=== PATIENT | female | born 1930 | race Caucasian/White ===

== ENCOUNTER 2017-02-08 08:36 | Inpatient (IN) | payer MEDICARE, BC ==
[2017-02-08] MEDS ORDERED: Aspirin Low Dose CHEW TAB* 81 MG PO ONE (09:02)
[2017-02-08] MEDS ORDERED: NS 0.9% 1000 ML* 1,000 ML IV ONE (09:02)
--- NOTE | 2017-02-08 09:44 | RAD ---
INDICATION: Pneumonia, CHF. COMPARISON: Comparison is made with prior chest x-ray studies from May 07, 2012 and June 21, 2012. TECHNIQUE: A portable view of the chest was obtained. FINDINGS: The heart is mildly enlarged and unchanged. There is elevation of the right hemidiaphragm which is unchanged. There is a small right upper lobe infiltrate. In addition there is increased density in the right paratracheal region possibly representing mediastinal lymphadenopathy. IMPRESSION: 1. POSSIBLE MEDIASTINAL LYMPHADENOPATHY, RECOMMEND A CT OF THE CHEST FOR FURTHER EVALUATION WITH CONTRAST. 2. SMALL RIGHT UPPER LOBE INFILTRATE.
[2017-02-08 10:11] LABS: Hematocrit 41 % (35-47); Mean Corpuscular HGB Conc 34 g/dl (31-36); Mean Corpuscular Hemoglobin 34 pg (27-31); Mean Corpuscular Volume 100 fL (80-97); Mean Platelet Volume 11 um3 (7.4-10.4); Red Blood Count 4.12 10^6/ul (4.0-5.4); Red Cell Distribution Width 14 % (10.5-15); White Blood Count 6.5 10^3/ul (3.5-10.8)
--- NOTE | 2017-02-08 10:56 | RAD ---
INDICATION: Thoracic aneurysm history, chest pain shortness of breath. COMPARISON: Comparison is made with prior CT studies of the chest from January 31, 2011, May 10, 2012 and June 17, 2012. TECHNIQUE: A CT scan of the chest was performed without intravenous contrast. Contiguous axial sections were obtained from the lung apices through the lung bases. Images were reconstructed in the coronal and sagittal planes. FINDINGS: There is an interstitial infiltrate present in the right upper lobe which appears unchanged from the prior exam most consistent with interstitial scarring. The lungs are otherwise clear. No pleural effusion is seen. There is a soft tissue density mass anterior to the ascending thoracic aorta measuring 5.4 x 5.1 x 3.2 cm in size. This previously measured 4.5 x 3.6 x 3.2 cm in size. There is some extension of contrast into the aneurysm on the study from 2010 which was performed with contrast. 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 The thoracic aorta is otherwise normal in caliber. There is moderate calcific plaque present. The heart is mildly enlarged. No pericardial effusion is present. No significant enlarged mediastinal or hilar lymph nodes are seen. There is a calcified subcarinal lymph node consistent with old granulomatous disease. No significant focal osseous abnormality is seen. The results of this exam were discussed with the referring clinician. 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
[2017-02-08 12:45] LABS: BUN/Creatinine Ratio 12.9 (8-20); Calcium 9.6 mg/dL (8.6-10.3); EGFR Non-African American 44.3 (>60); Globulin 3.3 g/dL (2-4); Magnesium 1.9 mg/dL (1.9-2.7); Potassium 4.5 mmol/L (3.5-5.0); Total Bilirubin 0.3 mg/dL (0.2-1.0); Total Protein 7.3 g/dL (6.4-8.9)
[2017-02-08] MEDS ORDERED: PROCHLORPERAZINE INJ 5 MG/ML 2 ML VIAL IV PRN (12:49)
[2017-02-08] MEDS ORDERED: Acetaminophen TAB* 325 MG PO PRN (12:49)
[2017-02-08] MEDS ORDERED: Morphine INJ* 2 MG/ML 1 ML SYRINGE IV PRN (12:49)
[2017-02-08] MEDS ORDERED: Labetalol IV* 5 MG/ML 20 ML VIAL IV PUSH ONE (12:50)
[2017-02-08] MEDS ORDERED: Dextrose 50% Syringe 50 ML* 25 GM/50 ML SYRINGE IV PUSH PRN (13:21)
[2017-02-08] MEDS ORDERED: Heparin VIAL(*) 5000 UNITS/ML VIAL (FIVE THOUSAND) SUBCUT SCH (14:00)
--- NOTE | 2017-02-08 15:11 | ED ---
Ana Riddle Edward, scribed for Theo Vasquez MD on 02/08/17 at 0845 . Shortness of Breath - HPI Summary HPI Summary: 86 y/o female BIBA c/o sudden onset SOB at 04:00 this morning. SOB has resolved in the ED. The pt was sleeping when it started. Pt also had L sided CP earlier that resolved spontaneously. Associated sx: chronic pedal edema, wheezing. Denies cough. No previous [place]. 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 SHx carotid artery surgery. Former smoker. Pt is allergic penicillin and bees. - History of Current Complaint Time Seen by Provider: 02/08/17 08:39 Hx Obtained From: Patient Onset/Duration: Sudden Onset, Resolved Associated Signs & Symptoms: Wheezing, Chest Pain Unrelated to Cough - Resolved , Edema - Chronic pedal edema - Allergy/Home Medications Allergies/Adverse Reactions: Allergies Allergy/AdvReac Type Severity Reaction Status Date / Time Iodinated Contrast Media Allergy Severe Swelling Verified 02/08/17 09:04 [CONTRAST DYE] Penicillins Allergy Severe Difficulty Verified 02/08/17 09:04 Breathing Soap Allergy Mild Rash Verified 02/08/17 09:04 Bee Venom Allergy Unknown Unknown Verified 02/08/17 09:04 Reaction Details Nabumetone AdvReac Mild Nausea Verified 02/08/17 09:04 PMH/Surg Hx/FS Hx/Imm Hx Previously Healthy: No Endocrine/Hematology History: Reports: Hx Blood Disorders - chronic mild thrombocytopenia, Hx Diabetes, Hx Thyroid Disease Denies: Hx Anticoagulant Therapy, Hx Anemia Cardiovascular History: Reports: Hx Aneurysm, Hx Hypertension, Other Cardiovascular Problems/Disorders - thrombosed thoracic aneurysm Respiratory History: Reports: Hx Chronic Obstructive Pulmonary Disease (COPD), Hx Pneumonia, Hx Seasonal Allergies - soap, bee, Other Respiratory Problems/ Disorders - copd GI History: Reports: Hx Gall Bladder Disease - gall stones, Other GI Disorders - colitis, constipation Denies: Hx Jaundice Sensory History: Reports: Hx Cataracts, Hx Contacts or Glasses, Hx Deafness - left ear, Hx Hearing Aid - x1 right ear, Hx Hearing Problem Opthamlomology History: Reports: Hx Cataracts, Hx Contacts or Glasses Neurological History: Reports: Hx Seizures, Other Neuro Impairments/Disorders - brain abcess-surgical repain in 1970s Psychiatric History: Reports: Hx Anxiety, Hx Depression Denies: Hx Substance Abuse - Surgical History Surgery Procedure, Year, and Place: appendectomy, mastoidectomy x 2 Hx Anesthesia Reactions: No - Family History Known Family History: Positive: Cardiac Disease - Sisters - [place] and cardiac disease, Diabetes - 2 daugthers - Social History Occupation: Retired Lives: Alone Alcohol Use: None Hx Substance Use: No Substance Use Type: Reports: None Hx Tobacco Use: No Smoking Status (MU): Never Smoked Tobacco Review of Systems Constitutional: Negative Eyes: Negative ENT: Negative Positive: Chest Pain Positive: Shortness Of Breath, Other - Wheezing. Negative: Cough Gastrointestinal: Negative Genitourinary: Negative Positive: Edema - Chronic pedal edema Skin: Negative Neurological: Negative Psychological: Normal All Other Systems Reviewed And Are Negative: Yes Physical Exam - Summary Physical Exam Summary: The patient is well-nourished in no acute distress and in no acute pain. Pt is obese. The skin is warm and dry and skin color reflects adequate perfusion. HEENT: The head is normocephalic and atraumatic. The pupils are equal and reactive. The conjunctivae are clear and without drainage. Nares are patent and without drainage. Mouth reveals moist mucous membranes and the throat is without erythema and exudate. The external ears are intact. The L ear canals is patent and without drainage. The L tympanic membrane is intact. The R TM was not visualized. The tongue was midline. Neck is supple with full range of motion and non-tender. There are no carotid bruits. There is no neck vein distension. Respiratory: Chest is non-tender. Lungs are clear to auscultation and breath sounds are symmetrical and equal. There are no rales, rhonchi or wheezing. Cardiovascular: Hear is regular rate and rhythm. There is no murmur or rub auscultated. There is no peripheral edema and pulses are symmetrical and equal. Capillary refill 2 seconds. Abdomen: The abdomen is soft and non-tender. There are normal bowel sounds heard in all four quadrants and there is no organomegaly palpated. Musculoskeletal: There is no back pain noted. Extremities are non-tender with full range of motion. There is good capillary refill. There is no peripheral edema or calf tenderness elicited. Neurological: Patient is alert and oriented to person, place and time. The patient has symmetrical motor strength in all four extremities. Cranial nerves are grossly intact. Deep tendon reflexes are symmetrical and equal in all four extremities. Psychiatric: The patient has an appropriate affect and does not exhibit any anxiety or depression. Triage Information Reviewed: Yes Vital Signs On Initial Exam: Initial Vitals Temp Pulse Resp BP Pulse Ox 98.0 F 53 16 232/72 99 02/08/17 08:50 02/08/17 08:50 02/08/17 08:50 02/08/17 08:50 02/08/17 08:50 Vital Signs Reviewed: Yes Diagnostics - Vital Signs Vital Signs Temp Pulse Resp BP Pulse Ox 02/08/17 13:00 59 15 214/181 100 02/08/17 12:30 68 20 212/173 100 02/08/17 12:00 62 19 100 02/08/17 11:58 61 18 100 02/08/17 11:57 172/89 02/08/17 11:30 57 18 184/108 100 02/08/17 10:30 54 17 149/72 100 02/08/17 09:30 57 17 193/55 100 02/08/17 08:50 98.0 F 53 16 232/72 99 - Laboratory Lab Results: Lab Results 02/08/17 02/08/17 02/08/17 Range/Units 09:57 09:57 09:57 WBC 6.5 (3.5-10.8) 10^3/ul RBC 4.12 (4.0-5.4) 10^6/ul Hgb 14.0 (12.0-16.0) g/dl Hct 41 (35-47) % MCV 100 H (80-97) fL MCH 34 H (27-31) pg MCHC 34 (31-36) g/dl RDW 14 (10.5-15) % Plt Count 135 L (150-450) 10^3/ul MPV 11 H (7.4-10.4) um3 Neut % (Auto) 50.7 (38-83) % Lymph % (Auto) 41.1 (25-47) % [place] % (Auto) 5.5 (1-9) % Eos % (Auto) 2.3 (0-6) % Baso % (Auto) 0.4 (0-2) % Absolute Neuts (auto) 3.3 (1.5-7.7) 10^3/ul Absolute Lymphs (auto) 2.7 (1.0-4.8) 10^3/ul Absolute Monos (auto) 0.4 (0-0.8) 10^3/ul Absolute Eos (auto) 0.1 (0-0.6) 10^3/ul Absolute Basos (auto) 0 (0-0.2) 10^3/ul Absolute Nucleated RBC 0 10^3/ul Nucleated RBC % 0 INR (Anticoag Therapy) (0.89-1.11) Sodium Cancelled Potassium Cancelled Chloride Cancelled Carbon Dioxide Cancelled Anion Gap Cancelled BUN Cancelled Creatinine Cancelled Est GFR ( Amer) Cancelled Est GFR (Non-Af Amer) Cancelled BUN/Creatinine Ratio Cancelled Glucose Cancelled Lactic Acid (0.5-2.0) mmol/L Calcium Cancelled Magnesium Cancelled Total Bilirubin Cancelled AST Cancelled ALT Cancelled Alkaline Phosphatase Cancelled Troponin I 0.01 (<0.04) ng/mL B-Natriuretic Peptide 121 H ( - 100) pg/mL Total Protein Cancelled Albumin Cancelled Globulin Cancelled Albumin/Globulin Ratio Cancelled TSH Cancelled 02/08/17 02/08/17 02/08/17 Range/Units 09:57 12:10 12:10 WBC (3.5-10.8) 10^3/ul RBC (4.0-5.4) 10^6/ul Hgb (12.0-16.0) g/dl Hct (35-47) % MCV (80-97) fL MCH (27-31) pg MCHC (31-36) g/dl RDW (10.5-15) % Plt Count (150-450) 10^3/ul MPV (7.4-10.4) um3 Neut % (Auto) (38-83) % Lymph % (Auto) (25-47) % [place] % (Auto) (1-9) % Eos % (Auto) (0-6) % Baso % (Auto) (0-2) % Absolute Neuts (auto) (1.5-7.7) 10^3/ul Absolute Lymphs (auto) (1.0-4.8) 10^3/ul Absolute Monos (auto) (0-0.8) 10^3/ul Absolute Eos (auto) (0-0.6) 10^3/ul Absolute Basos (auto) (0-0.2) 10^3/ul Absolute Nucleated RBC 10^3/ul Nucleated RBC % INR (Anticoag Therapy) 0.82 L (0.89-1.11) Sodium 136 Potassium 4.5 Chloride 101 Carbon Dioxide 28 Anion Gap 7 BUN 15 Creatinine 1.16 H Est GFR ( Amer) 57.0 Est GFR (Non-Af Amer) 44.3 BUN/Creatinine Ratio 12.9 Glucose 133 H Lactic Acid 2.0 (0.5-2.0) mmol/L Calcium 9.6 Magnesium 1.9 Total Bilirubin 0.30 AST 15 ALT 12 Alkaline Phosphatase 80 Troponin I (<0.04) ng/mL B-Natriuretic Peptide ( - 100) pg/mL Total Protein 7.3 Albumin 4.0 Globulin 3.3 Albumin/Globulin Ratio 1.2 TSH 5.00 Result Diagrams: 02/08/17 09:57 02/08/17 12:10 Lab Statement: Any lab studies that have been ordered have been reviewed, and results considered in the medical decision making process. - Radiology CXR Xray Interpretation: Positive (See Comments) - 1. POSSIBLE MEDIASTINAL LYMPHADENOPATHY, RECOMMEND A CT OF THE CHEST FOR FURTHER EVALUATION WITH CONTRAST. 2. SMALL RIGHT UPPER LOBE INFILTRATE. ED PHYSICIAN AGREEABLE. 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 FINDINGS CALLED INTO THE ED. CT Interpretation Completed By: Radiologist - EKG 1 EKG Interpretation: 09:25 - SR @ 61 BPM. T-wave inversion more pronounced than 06/15/12 Re-Evaluation - Re-Evaluation 1 Re-Evaluation Time: 11:19 Comment: Discussed CT results and plan of care. Pt is willing to stay in the hospital. Pt does not want her aneurysm operated on. Pt agreed to be DNR. Course/Dx - Course Assessment/Plan: 86 y/o female BIBA c/o sudden onset SOB at 04:00 this morning. SOB has resolved in the ED. The pt was sleeping when it started. Pt also had L sided CP earlier that resolved spontaneously. Associated sx: chronic pedal edema. No previous [place]. 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 SHx carotid artery surgery. Former smoker. CXR SHOWS 1. POSSIBLE MEDIASTINAL LYMPHADENOPATHY, RECOMMEND A CT OF THE CHEST FOR FURTHER EVALUATION WITH CONTRAST. 2. SMALL RIGHT UPPER LOBE INFILTRATE. ED PHYSICIAN AGREEABLE. EKG 09:25 - SR @ 61 BPM. T-wave inversion more pronounced than . 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 FINDINGS CALLED INTO THE ED. Dr. Kenyon agreed to admit the pt. - Diagnoses Differential Diagnosis/HQI/PQRI: Positive: COPD Exacerbation, [place], Pneumonia, Other - thoraic aneurysm Provider Diagnoses: Chest pain, Thoracic aortic aneurysm - Physician Notifications Discussed Care of Patient With: Анна Kenyon Time Discussed With Above Provider: 11:25 Instructed by Provider To: Admit As Inpatient Discharge - Discharge Plan Condition: Stable Disposition: ADMITTED TO [facility] documentation as recorded by the Ana juarez Edward accurately reflects the service I personally performed and the decisions made by Pedro castellnaos Drew, MD.
[2017-02-08] MEDS: cloNIDine TAB* 0.1 MG PO SCH ×2 (15:38→22:56)
[2017-02-08] MEDS: predniSONE TAB* 50 MG PO SCH ×2 (15:38→18:17)
--- NOTE | 2017-02-08 16:35 | HP ---
CC: Yandy Valdez MD HISTORY AND PHYSICAL: DATE OF ADMISSION: 02/08/17 TIME OF EVALUATION: 12:10 PRIMARY CARE PHYSICIAN: Yandy Valdez MD CHIEF COMPLAINT: Chest pain. HISTORY OF PRESENT ILLNESS: Ms. Lopez is an 82-year-old lady with a past medical history of a brain abscess with mastoiditis requiring mastoidectomy, seizure disorder, status post left carotid endarterectomy, ascending aorta aneurysm with rupture (patient declined surgery), hypertension, COPD, type 2 diabetes, anxiety, who presented to the emergency room with complaints of chest pain and shortness of breath. She states she was in her usual state of health until around 4:00 In the morning when she woke up with left-sided chest pain. She states the pain was severe, but she cannot give me a number. Although she tells me the pain is severe, she also tells me that she had "much worse pains in the past." This was followed by shortness of breath. She lied in bed and was expecting the symptoms to improve, but they did not, so around 7:30 in the morning, she called her daughter who called 911 and went to meet her mom at home. The patient states that last night, she was feeling well and she has not had chest pain for a long time. She denies fever, chills, cough or any other complaints. At the time of this interview, she is chest pain free and she states that her shortness of breath got much improved after she was started on supplemental oxygen. The only medication she received in the emergency room was one dose of aspirin. PAST MEDICAL HISTORY: 1. History of ascending aorta aneurysm in 2009. She had a CT at that time that showed pseudoaneurysm or rupture with a contained leak. She was transferred to [facility] and she decided against surgical intervention. She was discharged home with hospice and she was on hospice for 6 months, but she survived and did not have any other issues since then as far as she can tell us. 2. COPD. In the past, the patient required supplemental oxygen at home. 3. Status post cataract surgery. 4. Status post left carotid endarterectomy in 1992. 5. 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 She was treated with warfarin for years but this was since then discontinued. 6. Hypertension. 7. Type 2 diabetes. 8. Hypothyroidism. 9. Anxiety. 10. 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 She required left radical mastoidectomy and lost her hearing on that side. 11. History of seizure disorder at that time, but has been off medications for years. 12. Status post appendectomy. MEDICATIONS: List is not available at this time, but it will be updated. ALLERGIES: With IODINE CONTRAST, the patient had swelling. With PENICILLIN, the patient had difficulty breathing and hives. With NABUMETONE, the patient had nausea and the patient is also allergic to BEE VENOM. FAMILY HISTORY: Reviewed and noncontributory. SOCIAL HISTORY: The patient smoked a pack a day for about 44 years. No history of alcohol abuse. Surrogate decision maker is her daughter, Ramona Conde, phone number is [phone]. REVIEW OF SYSTEMS: A 14-point review of systems was performed and no other pertinent negative and positive findings are in the HPI. PHYSICAL EXAMINATION GENERAL: Patient is a pleasant elderly lady, lying in the ER stretcher in no acute distress. VITAL SIGNS: Temperature 98.0, heart rate is 68, respiratory rate is 20, oxygen saturation is 100% on room air, blood pressure is 172/89. HEENT: Pupils are equal. Moist mucous membranes. Hearing aid on the right. CVS: Normal S1 and S2. Regular rate and rhythm, with a systolic murmur. CHEST: Breath sounds present bilaterally, no added sounds. ABDOMEN: Obese, soft, nontender, nondistended. Bowel sounds present. EXTREMITIES: No edema. LABORATORY AND IMAGING DATA: CBC showed a WBC of 6.5, hemoglobin of 14, hematocrit 41, platelets of 135,000 with 50% neutrophils. INR was 0.82. Chemistry showed sodium of 136, potassium 4.5, chloride of 101, bicarb of 28, BUN of 15, creatinine of 1.1, glucose of 133, lactic acid of 2, calcium 9.6, magnesium 1.9. LFTs are normal. Chest x-ray showed possible mediastinal lymphadenopathy, recommended CT of the chest for further evaluation. Small right upper lobe infiltrates. CT of the chest without contrast showed a soft tissue density mass anterior to the ascending thoracic aorta measuring 5.4 x 5.1 x 3.2 cm in size. This previously measured 4.5 x 3.6 x 3.2 cm in size. There is some extension of contrast into the aneurysm on the study from 2010 consistent with pseudoaneurysm or saccular aneurysm, increasing size from the prior exam. EKG done on 02/08/17 at 9:25 a.m. showed sinus rhythm that showed T-wave inversions in II, III, aVF, V2 to V6. Those are new when compared to her prior EKG from June 2012. At that time, she did have some T-wave inversions from V1 to V6 not as pronounced and the other ones are new. ASSESSMENT AND PLAN: Ms. Lopez is an 86-year-old lady with a past medical history of ascending aorta aneurysm with pseudoaneurysm or rupture with contained leak who declined surgical treatment in the past, hypertension, type 2 diabetes, hypothyroidism, who presents to the emergency room with complaints of chest pain and shortness of breath, found to have EKG changes. 1. Chest pain. The differential includes her aneurysm. I had a long conversation with patient and her daughter at bedside and patient is very coherent with her wishes and states that she would not want to be transferred and would not want to pursue any treatment if this were ruptured/dissecting aneurysm. She understands that she may but she states that she is almost 87 and she would be ready to go. She states she remembers her experience in 2009 very well and if her symptoms get worse and this is truly an aneurysm, she would elect to be admitted to [facility] again. I was very clear that if later on during her admission we do figure out that this is a ruptured aneurysm, we may not have time to get her out of here in case she changes her mind and she acknowledges it. She understands that if this is a ruptured aneurysm and if she gets worse, she will probably in this facility and she states "this would not be a bad way to go. " We also talked about her EKG changes and the possibility of a myocardial infarction as the cause of her symptoms. The patient would accept medical management and symptom control, but she does not want any invasive measures including a cardiac cath. Her daughter would like to talk further with her mom about having a heart cath if she truly had a heart attack, but the patient says "I don't see the reason for it." At this point, the plan is to have her admitted as observation to telemetry floor. She is going to have serial troponins, serial EKGs and if acute coronary syndrome is ruled out, the patient would like to return to her home as soon as possible. In case she rules in, then she will need to be prepped for a CTA of the chest for further evaluation of her aneurysm as it is not clear if Cardiology would be able to cath her in this facility. The patient and the daughter are aware of this possible situation and accepted. As I stated above, the patient is not sure if she wants to pursue any further workup were this to be a heart attack, but her daughter would like to talk to her further about it. The patient has no recent trips, no leg swelling, no calf tenderness, so I think a pulmonary embolism is unlikely at this time. Later on, the patient and the daughter decided to pursue a CTA of the chest. As the patient had reaction to contrast with swelling in the past, we will have to prep her with prednisone and Benadryl for a CTA of the chest tomorrow. 2. Hypertension. It is uncontrolled and may contributing to her chest pain. She will receive one dose of labetalol at this time and we are going to get her medication list to see what medication she is taking at home. If needed, she may require a drip for better blood pressure control. 3. Type 2 diabetes. We are going to check her fingersticks and cover with a lispro sliding scale. 4. Hypothyroidism. We will continue her levothyroxine after her dosage is confirmed. 5. DVT prophylaxis. The patient has a score of 4 on the DVT prophylaxis Risk Assessment Guide and she will be started on subcutaneous heparin. 6. Code status. The patient is a do not resuscitate/do not intubate and a MOLST form is in her chart. TIME SPENT: Approximately 80 minutes were spent with the patient and daughter interview, medical records review, physical examination to complete this admission. All of their questions were answered. [id number]/[facility] #: [id number] HOMAR
[2017-02-08] MEDS: Insulin LISPRO* 1 UNITS UNIT SUBCUT SCH ×2 (17:20→22:56)
[2017-02-08] MEDS: LORazepam TAB(*) 0.5 MG PO SCH (18:16)
[2017-02-08] MEDS: PHENobarbital TAB(*) 30 MG PO SCH (22:55)
[2017-02-09] MEDS: diPHENhydraMINE PO* 50 MG PO SCH (02:30)
[2017-02-09] MEDS: predniSONE TAB* 50 MG PO SCH ×3 (02:31→19:39)
[2017-02-09] MEDS: Levothyroxine TAB* 112 MCG TAB PO SCH (05:33)
[2017-02-09] MEDS ORDERED: diPHENhydraMINE PO* 50 MG PO ONE (07:45)
[2017-02-09] MEDS ORDERED: predniSONE TAB* 50 MG PO ONE (07:45)
[2017-02-09] MEDS ORDERED: Iodixanol* (CONTRAST) 320 MG/ML 100 ML SDV IV ONE (08:40)
[2017-02-09] MEDS: Insulin LISPRO* 1 UNITS UNIT SUBCUT SCH ×4 (09:01→21:03)
[2017-02-09] MEDS: cloNIDine TAB* 0.1 MG PO SCH (09:02)
--- NOTE | 2017-02-09 09:18 | RAD ---
INDICATION: Chest pain, dyspnea evaluate for dissection and pulmonary embolism. COMPARISON: Comparison is made with a prior CT angiogram of the chest from January 31, 2011 and prior CTs of the chest from June 17, 2012 and February 08, 2017. TECHNIQUE: A CT angiogram of the chest was performed with intravenous following intravenous injection of 100 ml of Visipaque 320 nonionic contrast. Contiguous axial sections were obtained from the lung apices through the lung bases. Images were reconstructed in the coronal and sagittal planes. FINDINGS: There is relatively homogeneous opacification of the pulmonary arteries. No intraluminal filling defect or pulmonary embolism is seen. The heart is mildly enlarged. No pericardial effusion is present. There are calcifications within the coronary arteries. There is a pseudoaneurysm arising from the anterior ascending aorta and adjacent anterior wall of the innominate artery measuring 5.4 x 5.1 x 3.2 cm in size in previously measured 4.5 x 3.6 x 3.2 cm in size on the study from 2010. Contrast is noted extending into the base of the aneurysm. The contrast enhanced core measures 1.6 cm in diameter and is unchanged significant relief from the study from 2010. There is a second saccular aneurysm or pseudoaneurysm arising from the top of the aortic arch and origin of the left subclavian artery. This measures 2.4 x 1.8 x 1.7 cm in size and partially fills with contrast. This is seen on the prior study from 2010 in retrospect and measures 1.8 x 1.0 x 0.9 cm in size. The thoracic aorta is otherwise ectatic with mild to moderate calcific plaque present. No dissection is seen. No significant enlarged mediastinal or hilar lymph nodes are seen. There is a calcified subcarinal lymph node consistent with old granulomatous disease. There is a chronic interstitial infiltrate present in the right upper lobe which is unchanged from prior studies. There is minimal atelectasis at the right lung base. The lungs are otherwise clear. No pleural effusion is seen. No significant focal osseous abnormality is seen. IMPRESSION: 1. INTERVAL INCREASE IN SIZE OF THE PSEUDOANEURYSM ARISING FROM THE ASCENDING AORTA AND ANTERIOR ASPECT OF THE INNOMINATE ARTERY FROM OLDER STUDIES. 2. INTERVAL INCREASE IN SIZE OF THE PSEUDOANEURYSM OR SACCULAR ANEURYSM ARISING FROM THE AORTIC ARCH AND PROXIMAL LEFT SUBCLAVIAN ARTERY FROM OLDER STUDIES. 3. NO EVIDENCE FOR PULMONARY EMBOLISM.
--- NOTE | 2017-02-09 14:01 | ECHO ---
Patient: BARBARA AGUILAR [facility] Rec#: [id number] : 1930 Date: 02/09/2017 Age: 86y Height: 157.48 cm / 62.0 in Weight: 96.16 kg / 211.9 lbs Sex: F BSA: 1.96 Room#: 435 Type: Inpatient Referring: Анна Brenner MD Reading: Baljeet Liu MD [facility] Specialist: Deb Francis RDCS CC: Yandy Valdez MD Transthoracic Echocardiogram Indication: Chest Pain, SOB BP: 138/58 HR: 57 Rhythm: Bradycardia Findings History: Seizure disorder, brain abcess s/p mastoidectomy, AA psuedoaneurysm patient declined surgery, HTN, COPD, DMII. Technical Comments: The study quality is poor. The study is technically limited due to patient body habitus. The study is technically limited due to the patient's history of COPD. Left Ventricle: The left ventricular chamber size is normal. Mild concentric left ventricular hypertrophy is observed. Global left ventricular wall motion and contractility are within normal limits. There is normal left ventricular systolic function. The estimated ejection fraction is 60-65%. There is an E to A reversal in the mitral valve flow pattern suggestive of diastolic dysfunction. Left Atrium: The left atrial chamber size is normal. Right Ventricle: The right ventricular cavity size is normal. The right ventricular global systolic function is normal. Right Atrium: The right atrial cavity size is normal. Aortic Valve: The aortic valve is trileaflet. The aortic valve leaflets are mildly thickened. There is no evidence of aortic stenosis. Mitral Valve: There is mitral annular calcification. The mitral valve leaflets are mildly thickened. There is trace to mild mitral regurgitation. There is no evidence of mitral stenosis. Tricuspid Valve: The tricuspid valve leaflets are normal. There is mild tricuspid regurgitation. The right ventricular systolic pressure is estimated at 24 mmHg. There is no tricuspid stenosis. Pulmonic Valve: The pulmonic valve appears normal. There is a trace pulmonic regurgitation. There is no pulmonic stenosis. Pericardium: There is no significant pericardial effusion. A pericardial fat pad is visualized. Aorta: There is no dilatation of the ascending aorta. The aortic arch is not well visualized. There is no dilation of the aortic root. Pulmonary Artery: The main pulmonary artery is not well visualized. Venous: The inferior vena cava appears normal in size. There is a greater than 50% respiratory change in the inferior vena cava dimension. Conclusions Mild concentric left ventricular hypertrophy is observed. Global left ventricular wall motion and contractility are within normal limits. There is normal left ventricular systolic function. The estimated ejection fraction is 60-65%. The right ventricular global systolic function is normal. There is no evidence of aortic stenosis. There is trace to mild mitral regurgitation. There is mild tricuspid regurgitation. There is no significant pericardial effusion. Measurements Name Value Normal Range RVIDd (AP) 2D 3.3 cm (0.9 - 2.6) RVDdMajor (2D) 4 cm (2.2 - 4.4) RAd ISD 4CH 4.3 cm (3.4 - 4.9) RA (A4C)W 3.3 cm (2.9 - 4.6) IVSd (2D) 1.2 cm (0.6 - 1) LVPWd (2D) 1.2 cm (0.6 - 1) LVIDd (2D) 3.98 cm (3.6 - 5.4) LVIDs (2D) 2.1 cm - LV FS (2D) 47 % (25 - 45) Aortic Annulus 1.8 cm (1.4 - 2.6) Ao root diameter (2D) 3.1 cm (2.1 - 3.5) Ascending Ao 2.8 cm (2.1 - 3.4) LA dimension (AP) 2D 3.3 cm (2.3 - 3.8) LAd ISD 4CH 4.3 cm (2.9 - 5.3) LA ISD 4CH W 3.4 cm (2.5 - 4.5) Name Value Normal Range LA ESV SP 4CH (A/L) 34 ml - LA ESV SP 2CH (A/L) 58 ml - LA ESV BP (A/L) 49 ml - LA ESV BP (A/L) index 24.87 ml/m2 - LA ESV SP 4CH (MOD) 30 ml - LA ESV SP 2CH (MOD) 59 ml - Name Value Normal Range MV E-wave Vmax 1.1 m/sec - MV deceleration time 320.2 msec - MV A-wave Vmax 1.3 m/sec - MV E:A ratio 0.86 ratio - LV septal e' Vmax 0.06 m/sec - LV lateral e' Vmax 0.05 m/sec - LV E:e' septal ratio 18.33 ratio - LV E:e' lateral ratio 22 ratio - Name Value Normal Range AV Vmax 1.66 m/sec - AV VTI 35.3 cm - AV peak gradient 10.29 mmHg - AV mean gradient 5.25 mmHg - LVOT Vmax 1.34 m/sec - LVOT VTI 31.26 cm - LVOT peak gradient 7.18 mmHg - LVOT mean gradient 3.18 mmHg - Name Value Normal Range TR Vmax 2.3 m/sec - TR peak gradient 21 mmHg - RAP 3 mmHg - RVSP 24 mmHg - IVC diameter 2.1 cm - Name Value Normal Range PV Vmax 0.86 m/sec - PV peak gradient 2.9 mmHg -
--- NOTE | 2017-02-09 14:43 | PN ---
Subjective Date of Service: 02/09/17 Interval History: HOSPITALIST PROGRESS NOTE Patient seen and examined at bedside. She feels better today. No further episodes of chest pain today. Has 2nd degree AV block on telemetry, but asymptomatic. Denies dyspnea. Family History: Unchanged from Admission Social History: Unchanged from Admission Past Medical History: Unchanged from Admission Objective Active Medications: Acetaminophen (Tylenol Tab*) 650 mg PO Q6H PRN PRN Reason: pain/fever Amlodipine Besylate (Norvasc Tab*) 5 mg PO DAILY [facility] Clonidine HCl (Catapres Tab*) 0.2 mg PO DAILY [facility] Dextrose (D50w Syringe 50 Ml*) 12.5 gm IV PUSH .FOR FS < 60 - SS PRN PRN Reason: FS < 60 Diphenhydramine HCl (Benadryl Po*) 50 mg PO 0200 [facility] Last Admin: 02/09/17 02:30 Dose: 50 mg Insulin Human Lispro (Humalog*) 0 units SUBCUT ACHS [facility] PRN Reason: Protocol Last Admin: 02/09/17 12:03 Dose: 3 units Levothyroxine Sodium (Synthroid Tab*) 112 mcg PO 0600 [facility] Last Admin: 02/09/17 05:33 Dose: 112 mcg Lorazepam (Ativan Tab(*)) 0.5 mg PO QPM [facility] Last Admin: 02/08/17 18:16 Dose: 0.5 mg Morphine Sulfate (Morphine Inj (Syringe)*) 2 mg IV Q4H PRN PRN Reason: PAIN Phenobarbital (Phenobarbital Tab(*)) 60 mg PO BEDTIME [facility] Last Admin: 02/08/17 22:55 Dose: 60 mg Prednisone (Deltasone Tab*) 50 mg PO 1400,1900,0200 [facility] Last Admin: 02/09/17 02:31 Dose: 50 mg Prochlorperazine Edisylate (Compazine Inj*) 5 mg IV Q6H PRN PRN Reason: NAUSEA/VOMITING Vital Signs 02/09/17 02/09/17 02/09/17 07:59 09:59 11:14 Temperature 97.6 F Pulse Rate 59 Respiratory 16 16 16 Rate Blood Pressure 138/58 (mmHg) O2 Sat by Pulse 95 Oximetry Oxygen Devices in Use Now: None Appearance: Elderly lady sitting up in bed in NAD. Eyes: No Scleral Icterus Ears/Nose/Mouth/Throat: Mucous Membranes Moist Neck: Trachea Midline Respiratory: Symmetrical Chest Expansion and Respiratory Effort, Clear to Auscultation Cardiovascular: RRR - Normal S1 and S2 Abdominal: NL Sounds; No Tenderness; No Distention Neurological: Alert and Oriented x 3, NL Muscle Strength and Tone, - - [place] Lines/Tubes/Other Access: Clean, Dry and Intact Peripheral IV Nutrition: Taking PO's Result Diagrams: 02/08/17 09:57 02/08/17 12:10 Assess/Plan/Problems-Billing Assessment: Mrs. Lopez is an 86yo F with PMH of thoracic aorta aneurysm, COPD, HTN, HLD, type 2 DM, hypothyroidism, who presented to ED with chest pain. - Patient Problems (1) Chest pain Comment: - CTA was negative for PE. Aneurysm is expanding but with no signs of rupture or leakage. - Serial troponins are negative. - EKG still shows diffuse T wave inversions. - Echo showed no wall motion abnormalities and normal EF. - Continue Aspirin. - Check lipid profile and A1c. - Lengthy conversation with patient and daughter at bedside - recommended stress test, but patient wants to think about it. She's very clear she would not want any procedures related to her aneurysm, but would consider heart cath and stents. - (2) Second degree atrioventricular block, Mobitz (type) I Comment: - Has had episodes of 2nd degree HB type 1, asymptomatic. - No recent syncopal episodes. - As clonidine has a chronotropic negative effect, will titrate down and start Amlodipine. - Continue to monitor on Telemetry. - Patient and daughter educated about it. (3) Uncontrolled hypertension Comment: - Probably playing a role on her symptoms. - Responded well to Labetalol last night. - With her 2nd degree HB, will titrate Clonidine down and start Amlodipine. (4) Type 2 diabetes mellitus Comment: - Continue FS with Lispro SS. (5) DVT prophylaxis Comment: - SQ heparin. (6) DNR (do not resuscitate) Status and Disposition: Change to inpatient to continue BP control, monitor 2nd degree HB.
[2017-02-09] MEDS: Aspirin EC Low Dose* 81 MG TAB.EC PO SCH (15:46)
[2017-02-09] MEDS: amLODIPine TAB* 5 MG PO SCH (15:47)
[2017-02-09] MEDS: LORazepam TAB(*) 0.5 MG PO SCH (18:12)
[2017-02-09] MEDS: PHENobarbital TAB(*) 30 MG PO SCH (21:04)
[2017-02-10] MEDS: predniSONE TAB* 50 MG PO SCH (02:51)
[2017-02-10] MEDS: diPHENhydraMINE PO* 50 MG PO SCH (02:52)
[2017-02-10] MEDS: Levothyroxine TAB* 112 MCG TAB PO SCH (05:29)
[2017-02-10 08:16] LABS: Calcium 9.3 mg/dL (8.6-10.3); EGFR African American 52.7 (>60); HDL Cholesterol 93.2 mg/dL; Potassium 4.1 mmol/L (3.5-5.0)
[2017-02-10] MEDS ORDERED: cloNIDine TAB* 0.1 MG PO SCH (09:00)
[2017-02-10] MEDS: Aspirin EC Low Dose* 81 MG TAB.EC PO SCH (10:29)
[2017-02-10] MEDS: amLODIPine TAB* 5 MG PO SCH (10:29)
[2017-02-10] MEDS: Insulin LISPRO* 1 UNITS UNIT SUBCUT SCH ×4 (10:30→21:07)
[2017-02-10] MEDS: Polyethylene Glycol 3350* 17 GM PACKET PO SCH ×2 (11:48→21:12)
--- NOTE | 2017-02-10 13:39 | PN ---
Subjective Date of Service: 02/10/17 Interval History: HOSPITALIST PROGRESS NOTE Patient seen and examined at bedside. She feels well today. No further episodes of chest pain or dyspnea. Denies palpitations or dizziness. Family History: Unchanged from Admission Social History: Unchanged from Admission Past Medical History: Unchanged from Admission Objective Active Medications: Acetaminophen (Tylenol Tab*) 650 mg PO Q6H PRN PRN Reason: pain/fever Amlodipine Besylate (Norvasc Tab*) 5 mg PO ONCE ONE Stop: 02/10/17 17:01 Amlodipine Besylate (Norvasc Tab*) 10 mg PO DAILY [facility] Aspirin (Aspirin Ec Low Dose*) 81 mg PO DAILY [facility] Last Admin: 02/10/17 10:29 Dose: 81 mg Dextrose (D50w Syringe 50 Ml*) 12.5 gm IV PUSH .FOR FS < 60 - SS PRN PRN Reason: FS < 60 Insulin Human Lispro (Humalog*) 0 units SUBCUT ACHS [facility] PRN Reason: Protocol Last Admin: 02/10/17 12:35 Dose: 3 units Levothyroxine Sodium (Synthroid Tab*) 112 mcg PO 0600 [facility] Last Admin: 02/10/17 05:29 Dose: 112 mcg Lorazepam (Ativan Tab(*)) 0.5 mg PO QPM [facility] Last Admin: 02/09/17 18:12 Dose: 0.5 mg Morphine Sulfate (Morphine Inj (Syringe)*) 2 mg IV Q4H PRN PRN Reason: PAIN Phenobarbital (Phenobarbital Tab(*)) 60 mg PO BEDTIME [facility] Last Admin: 02/09/17 21:04 Dose: 60 mg Polyethylene Glycol/Electrolytes (Miralax*) 17 gm PO 0800,2100 [facility] Last Admin: 02/10/17 11:48 Dose: 17 gm Prochlorperazine Edisylate (Compazine Inj*) 5 mg IV Q6H PRN PRN Reason: NAUSEA/VOMITING Vital Signs 02/10/17 02/10/17 02/10/17 03:03 04:52 07:31 Temperature 97.4 F 99.1 F Pulse Rate 71 74 Respiratory 16 20 18 Rate Blood Pressure 115/66 171/76 (mmHg) O2 Sat by Pulse 94 93 Oximetry Oxygen Devices in Use Now: None Appearance: Elderly lady sitting up in bed in NAD. Eyes: No Scleral Icterus Ears/Nose/Mouth/Throat: Mucous Membranes Moist Neck: Trachea Midline Respiratory: Symmetrical Chest Expansion and Respiratory Effort, Clear to Auscultation Cardiovascular: RRR - Normal S1 and S2 Abdominal: NL Sounds; No Tenderness; No Distention Neurological: Alert and Oriented x 3, NL Muscle Strength and Tone, - - [place] Lines/Tubes/Other Access: Clean, Dry and Intact Peripheral IV Nutrition: Taking PO's Result Diagrams: 02/08/17 09:57 02/10/17 07:45 Assess/Plan/Problems-Billing Assessment: Mrs. Lopez is an 86yo F with PMH of thoracic aorta aneurysm, COPD, HTN, HLD, type 2 DM, hypothyroidism, who presented to ED with chest pain. - Patient Problems (1) Chest pain Comment: - CTA was negative for PE. Aneurysm is expanding but with no signs of rupture or leakage. - Serial troponins are negative. - EKG still shows diffuse T wave inversions. - Echo showed no wall motion abnormalities and normal EF. - Continue Aspirin. - Check lipid profile and A1c. - Lengthy conversation with patient again - she's agreeable with stress test in AM. (2) Second degree atrioventricular block, Mobitz (type) I Comment: - Has had episodes of 2nd degree HB type 1, asymptomatic. - No recent syncopal episodes. - As clonidine has a chronotropic negative effect, will titrate down and start Amlodipine. - Continue to monitor on Telemetry. (3) Uncontrolled hypertension Comment: - Probably playing a role on her symptoms. - With her 2nd degree HB, continue to titrate Clonidine down and increase Amlodipine. (4) Type 2 diabetes mellitus Comment: - Continue FS with Lispro SS. (5) DVT prophylaxis Comment: - SQ heparin. (6) DNR (do not resuscitate) Status and Disposition: Inpatient to continue BP control, monitor 2nd degree HB.
[2017-02-10] MEDS ORDERED: amLODIPine TAB* 5 MG PO ONE (17:00)
[2017-02-10] MEDS: LORazepam TAB(*) 0.5 MG PO SCH (19:00)
[2017-02-10] MEDS: PHENobarbital TAB(*) 30 MG PO SCH (21:12)
[2017-02-11] MEDS: Levothyroxine TAB* 112 MCG TAB PO SCH (05:34)
[2017-02-11] MEDS ORDERED: Regadenoson* 0.4 MG/5 ML SYRINGE ONE (07:30)
[2017-02-11] MEDS: Aspirin EC Low Dose* 81 MG TAB.EC PO SCH (08:43)
[2017-02-11] MEDS ORDERED: amLODIPine TAB* 5 MG PO SCH (09:00)
[2017-02-11] MEDS: Insulin LISPRO* 1 UNITS UNIT SUBCUT SCH ×2 (11:41→13:53)
[2017-02-11] MEDS: Polyethylene Glycol 3350* 17 GM PACKET PO SCH (11:49)
--- NOTE | 2017-02-11 14:04 | RAD ---
Edited for charges. INDICATION: Chest pain, shortness of breath, hypertension, obesity, abnormal EKG , family history of heart disease. COMPARISON: No relevant prior exams available on the [facility] for comparison. TECHNIQUE: 10.200 mCi of Tc-99m Myoview were administered IV. SPECT images of the heart were obtained. Later on the same day. Under the direction of Dr. Lui, the patient was given an IV injection of a pharmacologic stress agent. Subsequently, the patient was given an IV injection of 25.110 mCi Tc-99m Myoview. SPECT images of the heart were obtained and a gated wall motion study was performed. FINDINGS: Gated wall motion images were obtained at stress and demonstrate hypokinesia at the apical segment of the septum. The calculated left ventricular ejection fraction is 74 % at stress. Estimated LEFT ventricular end diastolic volume is 69 mL. TID 1.23. Small photopenic region corresponding with the RIGHT ventricle insertion. Based on review of the attenuation corrected and non corrected images there is no compelling scintigraphic evidence for stress-induced ischemia or presence of an infarct. IMPRESSION: 1. No compelling evidence for stress induced myocardial ischemia or presence of an infarct. 2. Normal range estimated LEFT ventricle ejection fraction. Hypokinesia at the apical segment of the septum. ASSESSMENT: LOW RISK. Based on imaging criteria from ACC/AHA 2002 Guideline Update for the Management of Patients With Chronic Stable Angina Table 23. Noninvasive Risk Stratification. MTDD
[2017-02-11 14:05] VITALS: BP 133/44
--- NOTE | 2017-02-12 03:02 | DS ---
CC: Dr. Yandy Valdez. * DISCHARGE SUMMARY: DATE OF ADMISSION: 02/08/17 DATE OF DISCHARGE: 02/11/17 PRIMARY CARE PROVIDER: Dr. Yandy Valdez. DISCHARGE DIAGNOSES: 1. Chest pain and dyspnea likely secondary to hypertensive urgency. 2. Second-degree AV block type 1. SECONDARY DIAGNOSES: 1. Ascending aortic aneurysm. 2. Chronic obstructive pulmonary disease. 3. Peripheral vascular disease, status post left carotid endarterectomy. 4. Hypertension. 5. Type 2 diabetes. 6. Hypothyroidism. 7. Anxiety. 8. 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 9. Remote history of seizure disorder after her brain abscess. MEDICATION LIST: 1. EpiPen as needed for allergic reaction. 2. Levothyroxine 112 mcg p.o. daily. 3. Lorazepam 0.5 mg p.o. at bedtime. 4. Metformin 500 mg p.o. daily. 5. Phenobarbital 64.8 mg p.o. at bedtime. Medication Change: Clonidine was discontinued and the patient was started on amlodipine 10 mg p.o. daily. HOSPITAL COURSE: Mrs. Lopez is an 86-year-old lady with a past medical history as stated above that presented to the emergency room with complaints of chest pain and shortness of breath. For more details about her presentation, I refer you to her history and physical. The patient was found to have EKG changes with profound T-wave inversions in Q3 , aVF, V2 to V6, and those were new when compared to her EKG from 2013. She was admitted for further evaluation and also for blood pressure control as her initial blood pressure in the emergency room was 230/108 despite the patient stating that she is compliant with diet and medication. She had serial troponins that were negative. No new EKG changes. With her history of aortic aneurysm the patient underwent a CTA of the chest and as she has a history of reaction to iodine contrast, she had to be prepped with Benadryl and prednisone. The CTA of the chest showed interval increase in size of the pseudoaneurysm arising from the ascending aorta and anterior aspect of the innominate artery when compared to prior studies. There is interval increase in size of the pseudoaneurysm or saccular aneurysm arising from the aortic arch in proximal left subclavian artery; but there was no report of dissection or leakage. This study was also negative for pulmonary embolism. The patient underwent a transthoracic echocardiogram that showed mild concentric LVH with global left ventricular wall motion and contractility within normal limits. Ejection fraction was 60% to 65%, there was no evidence of aortic stenosis, [id number] mitral regurgitation, mild tricuspid regurgitation, no significant pericardial effusion. The patient underwent a pharmacological Myoview stress test that was a low-risk study with no compelling evidence for a stress-induced myocardial ischemia or presence of an infarct. On telemetry, the patient was found to have episodes of second-degree heart block type 1, and her clonidine was tapered down and she was started on amlodipine with much better blood pressure control and her second-degree heart block has also resolved at this point. The patient is medically stable for discharge at this point. She will follow up with Dr. Valdez on February 14 to continue to monitor her blood pressure. The patient is very clear that she would not want to pursue any intervention regarding her aneurysm. The patient and her daughter are aware that this has progressed in size since her last study, but the patient is very clear and coherent about her wishes that she would not want to pursue any surgical measures and if she were to have progressive symptoms related to the aneurysm, she would let admission to hospice as she did 7 years ago. I believe her EKG changes are likely secondary to her hypertensive urgency and the patient was educated regarding the need for good blood pressure control, so she does not have recurrence of her symptoms. She is medically stable for discharge today. PHYSICAL EXAMINATION: Vital Signs: Temperature 97.6, heart rate is 63, respiratory rate is 16, oxygen saturation is 90% on room air, and blood pressure is 133/44. General: The patient is a pleasant elderly lady sitting up in bed, in no acute distress. CVS: Normal S1 and S2. Regular rate and rhythm. Chest: Breath sounds present bilaterally with no added sounds. Abdomen is obese, soft, bowel sounds are present. Extremities: No edema. Neuro: She is alert and oriented x3, able to move all 4 extremities. DIET: Heart-healthy consistent carb diet. ACTIVITY: As tolerated. DISPOSITION: To home. STATUS WHILE IN THE HOSPITAL: Inpatient. The patient and her daughter were educated about the patient's test results. The patient is very clear that she would not want to be "back and forth to the hospital". I believe the best plan of care at this point is to follow up with Dr. Valdez for blood pressure monitoring and adjust her medications as needed to keep good blood pressure control as I believe uncontrolled hypertension was the cause of her symptoms at this admission. She is very clear that she would not want to pursue any further workup or any kind of surgical procedure regarding her aneurysm. The patient and her daughter were educated about the symptoms that should prompt her return to the emergency room. Please keep in mind this is a summarized version of this patient's hospital stay. I you need more information please feel free to call me at [phone] or please obtain the full medical records. TIME SPENT: Approximately 50 minutes was spent to complete this discharge. [id number]/CPS #: [id number] HOMAR
== END 2017-02-11 17:30 | disposition home or self-care (01) | DRG 305 ==
LOC: ED 08:36 → MEDTELE 13:03 → OBSVTOIN 13:03 → INTOOBSV 13:03 → OBSVTOIN 02-09 14:36
PROVIDERS: ADMIT Internal Medicine; ATTEND Internal Medicine
DX: I16.0 Hypertensive urgency (principal); I71.2 Thoracic aortic aneurysm, without rupture; E11.51 Type 2 diabetes mellitus with diabetic peripheral angiopathy without gangrene; I44.1 Atrioventricular block, second degree; J44.9 Chronic obstructive pulmonary disease, unspecified; E03.9 Hypothyroidism, unspecified; E66.9 Obesity, unspecified; F41.9 Anxiety disorder, unspecified; Z66 Do not resuscitate; Z88.0 Allergy status to penicillin; Z68.38 Body mass index [BMI] 38.0-38.9, adult; Z88.8 Allergy status to other drugs, medicaments and biological substances; Z91.030 Bee allergy status; Z91.041 Radiographic dye allergy status; Z87.891 Personal history of nicotine dependence
CPT/HCPCS: 36415; 71010; 71250; 71275; 78452; 80048; 80053; 80061; 83036; 83605; 83735; 83880; 84443; 84484; 85025; 85610; 93005; 93017; 93306; A9270-GY; A9502; J0780; J2785; J7512; Q9967

== ENCOUNTER 2018-02-01 17:47 | Emergency (ER) | payer MEDICARE, BC ==
[2018-02-01 18:22] VITALS: BP 188/80
--- NOTE | 2018-02-01 18:32 | UC ---
Skin Complaint HPI - HPI Summary HPI Summary: stung by a bee yesterday while on the porch in her nightgown on right side of [place]---patient has been using Benadryl and cool compress with some relief--- wants it checked as she has had an anaphylactic rx to bee stings in the past - History of Current Complaint Chief Complaint: UCSkin Time Seen by Provider: 02/01/18 18:29 Stated Complaint: BEE STING Hx Obtained From: Patient ?: No Onset/Duration: Sudden Onset, Lasting Days - 1, Still Present Timing: Constant Pain Intensity: 3 Pain Scale Used: 0-10 Numeric Location: Discrete - vulva swollen and red--itchy Character: Swelling, Redness Aggravating Factor(s): Nothing Alleviating Factor(s): Cold, Antihistamines Associated Signs & Symptoms: Positive: Negative - Allergy/Home Medications Allergies/Adverse Reactions: Allergies Allergy/AdvReac Type Severity Reaction Status Date / Time bee venom protein (honey bee) Allergy Unknown Verified 02/01/18 18:25 Reaction Details Iodinated Contrast- Oral and Allergy Swelling Verified 02/01/18 18:25 IV Dye nabumetone Allergy Nausea Verified 02/01/18 18:25 Penicillins Allergy Difficulty Verified 02/01/18 18:25 Breathing soap Allergy Rash Verified 02/01/18 18:26 Home Medications: Home Medications Sertraline* [Zoloft*] 1 tab PO DAILY 02/01/18 [History Confirmed 02/01/18] Review of Systems Constitutional: Negative Skin: Other - bee sting right labia-vulva swollen and red Eyes: Negative ENT: Negative Respiratory: Negative Cardiovascular: Negative Gastrointestinal: Negative Genitourinary: Negative Motor: Negative Neurovascular: Negative Musculoskeletal: Negative Neurological: Negative Psychological: Negative Is Patient Immunocompromised?: No All Other Systems Reviewed And Are Negative: Yes PMH/Surg Hx/FS Hx/Imm Hx Previously Healthy: No Endocrine History: Diabetes, Hypothyroidism Cardiovascular History: Hypertension Psychological History: Depression Other History Of: Negative For: Anticoagulant Therapy - Surgical History Surgical History: Yes Surgery Procedure, Year, and Place: appendectomy, mastoidectomy x 2 - Family History Known Family History: Positive: Cardiac Disease - Sisters - [place] and cardiac disease, Diabetes - 2 daugthers - Social History Occupation: Retired Lives: With Family Alcohol Use: None Substance Use Type: None Smoking Status (MU): Former Smoker Have You Smoked in the Last Year: No - Immunization History Most Recent Influenza Vaccination: 2016 Most Recent Tetanus Shot: Unknown Most Recent Pneumonia Vaccination: unknown Physical Exam Triage Information Reviewed: Yes Appearance: Well-Appearing, No Pain Distress, Obese Vital Signs: Initial Vital Signs Temp 98.3 F 02/01/18 18:18 Pulse 63 02/01/18 18:18 Resp 18 02/01/18 18:18 BP 188/80 02/01/18 18:18 Pulse Ox 99 02/01/18 18:18 Vital Signs Reviewed: Yes Eye Exam: Normal Eyes: Positive: Conjunctiva Clear ENT Exam: Normal ENT: Positive: Normal ENT inspection, Hearing grossly normal. Negative: Trismus , Muffled voice, Hoarse voice Dental Exam: Normal Neck exam: Normal Neck: Positive: Supple, Nontender Respiratory Exam: Normal Respiratory: Positive: Chest non-tender, No respiratory distress, No accessory muscle use Cardiovascular Exam: Normal Cardiovascular: Positive: RRR, Pulses Normal, Brisk Capillary Refill Musculoskeletal Exam: Normal Neurological Exam: Normal Neurological: Positive: Alert, Muscle Tone Normal Psychological Exam: Normal Psychological: Positive: Normal Response To Family, Age Appropriate Behavior Skin Exam: Other Skin: Positive: Other - itchy red swollen vulva near bee sting Course/Dx - Course Course Of Treatment: rest ice, benadryl, cool compress follow with pcp this week for recheck and blood pressure recheck - Diagnoses Provider Diagnoses: localized reaction to insect sting right labia and vulva Discharge - Sign-Out/Discharge Documenting (check all that apply): Patient Departure All imaging exams completed and their final reports reviewed: No Studies - Discharge Plan Condition: Stable Disposition: HOME Patient Education Materials: Diphenhydramine (By mouth), Insect Bite or Sting ( ED), Hypertension (ED), Cold Compress or Soak (ED) Referrals: Yandy Valdez MD [Primary Care Provider] - 3 Days - Billing Disposition and Condition Condition: STABLE Disposition: Home
== END 2018-02-01 19:15 | disposition home or self-care (01) ==
LOC: UCEAST 17:47
DX: T63.441A Toxic effect of venom of bees, accidental (unintentional), initial encounter (principal); N90.89 Other specified noninflammatory disorders of vulva and perineum; L29.2 Pruritus vulvae; E11.9 Type 2 diabetes mellitus without complications; I10 Essential (primary) hypertension; F32.9 Major depressive disorder, single episode, unspecified; Z79.899 Other long term (current) drug therapy; Z87.891 Personal history of nicotine dependence; Y92.89 Other specified places as the place of occurrence of the external cause; Z88.8 Allergy status to other drugs, medicaments and biological substances; Z91.041 Radiographic dye allergy status; Z88.0 Allergy status to penicillin; Z91.030 Bee allergy status
CPT/HCPCS: 81003; 87086; 99211; G0463